=== PATIENT | female | born 1985 | race African-American/Black ===

== ENCOUNTER 2017-02-02 11:35 | Emergency (ER) | payer OTHER ==
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
[2017-02-02 12:55] VITALS: BP 112/67
== END 2017-02-02 12:55 | disposition home or self-care (01) ==
LOC: ER 11:35
DX: S00.83XA Contusion of other part of head, initial encounter (principal); S06.0X0A Concussion without loss of consciousness, initial encounter; R51 Headache; H92.09 Otalgia, unspecified ear; W22.8XXA Striking against or struck by other objects, initial encounter; F17.210 Nicotine dependence, cigarettes, uncomplicated
CPT/HCPCS: 99283

== ENCOUNTER 2018-01-09 10:43 | Emergency (ER) | payer BC, OTHER ==
[2018-01-09] MEDS ORDERED: RINGERS SOLUTION,LACTATED 1,000 ML IV ONE (10:58)
[2018-01-09] MEDS ORDERED: ONDANSETRON HCL INJ/PF 4 MG/2 ML SDV IV ONE (10:59)
[2018-01-09] MEDS ORDERED: IPRATROPIUM/ALBUTEROL 0.5-2.5 MG/3 ML AMPUL NEB ONE (11:00)
--- NOTE | 2018-01-09 11:01 | ER Document Report ---
ED Medical Screen (RME) - General Chief Complaint: Ear Pain Stated Complaint: COLD SYMPTOMS Time Seen by Provider: 01/09/18 10:58 Mode of Arrival: Ambulatory Information source: Patient Notes: 32-year-old female with a remote history of asthma and bipolar affective disorder presents to the emergency room with cough, shortness of breath, nausea , vomiting, not tolerating fluids. Patient states she has generalized weakness and fell because of the weakness and now has left hip pain. Patient does appear uncomfortable in triage. TRAVEL OUTSIDE OF THE [place] IN LAST 30 DAYS: No - Related Data Allergies/Adverse Reactions: No Known Allergies Allergy (Verified 02/10/16 11:05) Past Medical History Renal/ Medical History: Denies: Hx Peritoneal Dialysis Psychiatric Medical History: Reports: Hx Depression - anxiety - Immunizations Hx Diphtheria, Pertussis, Tetanus Vaccination: Yes Physical Exam - Vital signs Vitals: Temp Pulse Resp BP Pulse Ox 98.4 F 82 16 116/69 98 01/09/18 10:58 01/09/18 10:58 01/09/18 10:58 01/09/18 10:58 01/09/18 10:58 Course - Vital Signs Vital signs: Temp Pulse Resp BP Pulse Ox 98.4 F 82 16 116/69 98 01/09/18 10:58 01/09/18 10:58 01/09/18 10:58 01/09/18 10:58 01/09/18 10:58
[2018-01-09] MEDS ORDERED: HYDROCODONE/ACETAMINOPHEN 5-325 MG TABLET PO ONE (11:40)
[2018-01-09] MEDS ORDERED: IBUPROFEN 800 MG TABLET PO ONE (11:40)
[2018-01-09] MEDS ORDERED: AMOXICILLIN TR/POT CLAVULANATE 500-125 MG TAB PO ONE (11:40)
[2018-01-09] MEDS ORDERED: AMOXICILLIN TRIHYD 250 MG CAPSULE PO ONE (11:40)
--- NOTE | 2018-01-09 11:43 | ER Document Report ---
HPI - HPI Patient complains to provider of: Lump to right side of neck Onset: Other - 10 days Onset/Duration: Persistent Quality of pain: Achy Pain Level: 3 Context: Patient complains of tender lump to right side of neck that she is noticed for the past 10 days. Patient denies any sore throat fever or any old symptoms. Patient denies any exposures to any cat scratches or cat bites. Patient denies any difficulty breathing or swallowing. Associated Symptoms: Earache, Other - Lump to right side of neck. denies: Nonproductive cough, Productive cough, Fever Exacerbated by: Denies Relieved by: Denies Similar symptoms previously: No Recently seen / treated by doctor: No - ROS ROS below otherwise negative: Yes Systems Reviewed and Negative: Yes All other systems reviewed and negative - CONSTITUTIONAL Constitutional: DENIES: Fever, Chills - EENT EENT: REPORTS: Ear Pain - R side throat - NEURO Neurology: DENIES: Headache, Weakness - RESPIRATORY Respiratory: DENIES: Coughing - GASTROINTESTINAL Gastrointestinal: DENIES: Nausea, Patient vomiting - REPRODUCTIVE Reproductive: DENIES: : - MUSCULOSKELETAL Musculoskeletal: REPORTS: Neck Pain - DERM Skin Color: Normal Skin Problems: None Past Medical History - General Information source: Patient - Social History Smoking Status: Current Every Day Smoker Chew tobacco use (# tins/day): No Smoking Education Provided: Yes Frequency of alcohol use: Occasional Drug Abuse: None Occupation: [employer] Lives with: Family Family History: Reviewed & Not Pertinent, Hypertension, Other - Negative family history of migraines Patient has suicidal ideation: No Patient has homicidal ideation: No - Medical History Medical History: Negative Renal/ Medical History: Denies: Hx Peritoneal Dialysis Past Surgical History: Reports: Hx Orthopedic Surgery - Immunizations Hx Diphtheria, Pertussis, Tetanus Vaccination: Yes Vertical Provider Document - CONSTITUTIONAL Agree With Documented VS: Yes Exam Limitations: No Limitations General Appearance: WD/WN, No Apparent Distress - INFECTION CONTROL TRAVEL OUTSIDE OF THE [place] IN LAST 30 DAYS: No - HEENT HEENT: Atraumatic, Normocephalic. negative: Pharyngeal Exudate, Pharyngeal Tenderness, Pharyngeal Erythema, Tympanic Membrane Red, Tympanic Membrane Bulging Mouth Diagram: 1 - Dental caries, dental fracture, no gingival abscess, no sublingual or submental swelling, no trismus - NECK Neck: Lymphadenopathy-Right - Prominent right submandibular lymph node, normal skin color overlying area - RESPIRATORY Respiratory: Breath Sounds Normal, No Respiratory Distress, Chest Non-Tender - CARDIOVASCULAR Cardiovascular: Regular Rate, Regular Rhythm, No Murmur - BACK Back: Normal Inspection - MUSCULOSKELETAL/EXTREMETIES Musculoskeletal/Extremeties: BRAD SHABAZZ - NEURO Level of Consciousness: Awake, Alert, Appropriate Motor/Sensory: No Motor Deficit - DERM Integumentary: Warm, Dry, No Rash Course - Re-evaluation Re-evalutation: 01/09/18 Suspect patient with reactive lymph node due to infected dental caries on the right lower side. Patient does report intermittent jaw pain that corresponds to location of tooth. Patient states pain will occasionally radiate to her ear and right side of face. Patient without any neurologic deficits, no potential airway compromise. Good return precautions given. Patient agreeable with discharge plan of care at this time. - Vital Signs Vital signs: Temp Pulse Resp BP Pulse Ox 98.4 F 82 16 116/69 98 01/09/18 10:58 01/09/18 10:58 01/09/18 10:58 01/09/18 10:58 01/09/18 10:58 Discharge - Discharge Clinical Impression: Dental caries, Cervical lymphadenopathy Condition: Stable Disposition: HOME, SELF-CARE Instructions: Anti-Inflammatory Medication ([facility]), Augmentin ([facility]), Lymphadenopathy ([facility]) Additional Instructions: Return immediately for any new or worsening symptoms Followup with your primary care provider, call tomorrow to make a followup appointment Follow-up with a dental care provider Prescriptions: Amox Tr/Potassium Clavulanate [Augmentin 875-125 Tablet] 1 tab PO BID 10 Days tablet Naproxen [Naprosyn 250 Nmg Tablet] 1 tab PO BID #14 tablet Forms: Smoking Cessation Education Referrals: EMEKA OLSON MD [Primary Care Provider] - Follow up as needed [facility] [Provider Group] - Follow up as needed
[2018-01-09 12:15] VITALS: BP 117/74
== END 2018-01-09 12:15 | disposition home or self-care (01) ==
LOC: ER 10:43
DX: K02.9 Dental caries, unspecified (principal); R22.1 Localized swelling, mass and lump, neck; H92.01 Otalgia, right ear; F17.200 Nicotine dependence, unspecified, uncomplicated
CPT/HCPCS: 99283; J3490

== ENCOUNTER 2018-05-23 02:22 | Emergency (ER) | payer BC ==
[2018-05-23 02:44] VITALS: BP 110/66
--- NOTE | 2018-05-23 03:27 | RADIOLOGY REPORT (SQ) ---
EXAM DESCRIPTION: XR FINGERS COMPLETED DATE/TME: 05/23/2018 00:00 CLINICAL HISTORY: 33 years, Female, fell landed on right thumb. COMPARISON: None. NUMBER OF VIEWS: 3 TECHNIQUE: 3 views right thumb LIMITATIONS: None. FINDINGS: Negative for acute fracture or dislocation. Soft tissues are unremarkable IMPRESSION: Negative exam copyright 2011 [employer]- All Rights Reserved
[2018-05-23] MEDS ORDERED: ACETAMINOPHEN 325 MG TABLET PO ONE (04:08)
[2018-05-23] MEDS ORDERED: IBUPROFEN 600 MG TABLET PO ONE (04:08)
--- NOTE | 2018-05-23 04:08 | ER Document Report ---
ED General - General Chief Complaint: Hand Injury Stated Complaint: THUMB INJURY Time Seen by Provider: 05/23/18 03:20 Primary Care Provider: EMEKA OLSON MD [Primary Care Provider] - Follow up as needed Notes: Patient is a 33-year-old female without chronic medical problems who presents with pain to her right thumb and right thenar eminence. Patient states that she fell landing onto the thenar eminence and thumb while going upstairs. Since that time has had a dull, throbbing, constant pain to the area worsened by movement of the thumb. Has not tried nothing for improvement of the pain. No history of similar injuries in the past. She is right-hand dominant. Denies any additional injuries or concerns today. TRAVEL OUTSIDE OF THE [place] IN LAST 30 DAYS: No - Related Data Allergies/Adverse Reactions: No Known Allergies Allergy (Verified 02/10/16 11:05) Past Medical History - General Information source: Patient - Social History Smoking Status: Never Smoker Frequency of alcohol use: None Drug Abuse: None Lives with: Friend Family History: Reviewed & Not Pertinent, Hypertension, Other - Negative family history of migraines Patient has suicidal ideation: No Patient has homicidal ideation: No Renal/ Medical History: Denies: Hx Peritoneal Dialysis Psychiatric Medical History: Reports: Hx Depression - anxiety Past Surgical History: Reports: Hx Orthopedic Surgery - Immunizations Hx Diphtheria, Pertussis, Tetanus Vaccination: Yes Review of Systems - Review of Systems Notes: Constitutional: Negative for fever. Eyes: Negative for visual changes. ENT: Negative for facial injury Cardiovascular: Negative for chest injury. Respiratory: Negative for shortness of breath. Gastrointestinal: Negative for abdominal injury. Genitourinary: Negative for genital injury Musculoskeletal: Positive right hand and thumb injury Skin: Negative for laceration/abrasions. Neurological: Negative for head injury. Physical Exam - Vital signs Vitals: Temp Pulse Resp BP Pulse Ox 98.9 F 98 16 110/66 100 05/23/18 02:43 05/23/18 02:43 05/23/18 02:43 05/23/18 02:43 05/23/18 02:43 Interpretation: Normal Notes: PHYSICAL EXAMINATION: GENERAL: Well-appearing, well-nourished and in no acute distress. HEAD: Atraumatic, normocephalic. EYES: sclera anicteric, conjunctiva are normal. ENT: Moist mucous membranes. NECK: Normal range of motion LUNGS: Normal work of breathing HEART: 2+ radial pulses bilaterally EXTREMITIES: There is mild ecchymosis over the thenar eminence on the right hand. No pain on palpation of the anatomic snuffbox. Patient is able to fully flex the thumb at the PIP as well as at the MCP. There is pain with these range of movements. Full extension present. NEUROLOGICAL: No focal neurological deficits. Moves all extremities s pontaneously and on command. PSYCH: Normal mood, normal affect. SKIN: Warm, Dry, normal turgor, no rashes or lesions noted. Course - Re-evaluation Re-evalutation: 05/23/18 04:06 No evidence of a septic joint, gout flare, dislocation, or fracture on exam and imaging. Full flexion extension at the thumb. Notable ecchymosis to the thenar eminence which is likely the source of the patient's pain. Vitals wnl. At this time, I do not see an indication for labs or further imaging. Will discharge with conservative measures, return precautions, and follow-up recommendations. - Vital Signs Vital signs: Temp Pulse Resp BP Pulse Ox 98.9 F 98 16 110/66 100 05/23/18 02:43 05/23/18 02:43 05/23/18 02:43 05/23/18 02:43 05/23/18 02:43 - Diagnostic Test Radiology reviewed: Image reviewed, Reports reviewed Radiology results interpreted by me: 05/23/18 04:07 Right thumb x-ray: No acute fracture or dislocation Discharge - Discharge Clinical Impression: Injury of right thumb Qualifiers: Encounter type: initial encounter Qualified Code(s): S69.91XA - Unspecified injury of right wrist, hand and finger(s), initial encounter Injury of right hand Qualifiers: Encounter type: initial encounter Qualified Code(s): S69.91XA - Unspecified injury of right wrist, hand and finger(s), initial encounter Condition: Good Disposition: HOME, SELF-CARE Additional Instructions: Your x-ray does not show any acute fracture today. You likely have a soft tissue injury. You should continue to take anti-inflammatories such as ibuprofen 600 mg every 6 hours. Continue to apply ice to the area is much your able. Please follow-up with your primary care physician if you do not have improving your symptoms in the next 1-2 weeks. Please return immediately if you develop weakness, numbness, spreading redness from the area, or any other symptoms that are concerning to you. Referrals: EMEKA OLSON MD [Primary Care Provider] - Follow up as needed DINORAH OQUENDO DO [ACTIVE STAFF] - Follow up as needed
== END 2018-05-23 04:15 | disposition home or self-care (01) ==
LOC: ER 02:22
DX: S60.221A Contusion of right hand, initial encounter (principal); M79.644 Pain in right finger(s); M79.642 Pain in left hand; W10.9XXA Fall (on) (from) unspecified stairs and steps, initial encounter
CPT/HCPCS: 99283

== ENCOUNTER 2018-07-08 22:27 | Emergency (ER) | payer BC | END 2018-07-08 22:45 | disposition left against medical advice (07) | LOC: ER 22:27 | DX: Z53.21 Procedure and treatment not carried out due to patient leaving prior to being seen by health care provider (principal) | CPT/HCPCS: 99282 ==

== ENCOUNTER 2019-01-05 00:40 | Emergency (ER) | payer BC ==
[2019-01-05] MEDS ORDERED: KETOROLAC TROMETHAMINE INJ/PF 30 MG/1 ML SDV IV ONE (03:19)
--- NOTE | 2019-01-05 04:26 | RADIOLOGY REPORT (SQ) ---
EXAM DESCRIPTION: XR CHEST 2 VIEWS COMPLETED DATE/TME: 01/05/2019 03:19 CLINICAL HISTORY: 33 years, Female, SOB COMPARISON: None. NUMBER OF VIEWS: Two TECHNIQUE: Two views of the chest LIMITATIONS: None. FINDINGS: The lungs are clear. The heart is normal in size. No pneumothorax or pleural effusion. The bones are unremarkable. IMPRESSION: No acute cardiopulmonary abnormality. copyright 2010 [employer]- All Rights Reserved
--- NOTE | 2019-01-05 05:20 | ER Document Report ---
ED General - General Chief Complaint: Chest Pain Stated Complaint: CHEST PAINS/SHORTNESS OF BREATH Time Seen by Provider: 01/05/19 03:19 Primary Care Provider: EMEKA OLSON MD [Primary Care Provider] - Follow up as needed Notes: Patient is a 33-year-old female presents to the emergency department for right- sided chest pain. States it is achy and constant nature. States she rolled over in bed and noticed she had it around approximately 2200 hrs. Patient voices the pain increases when she takes a deep breath, palpates it, rotates her right shoulder. Patient's denying any injuries that she knows of. Patient's denying breaking out in a sweat. Patient voices sometimes when she takes a deep breath and the pain "hits me I feel short of breath." Patient's denying any long car rides, train rides, plane rides. She is denying using oral contraceptives. Patient voices she does smoke cigarettes. TRAVEL OUTSIDE OF THE [place] IN LAST 30 DAYS: No - Related Data Allergies/Adverse Reactions: No Known Allergies Allergy (Verified 01/05/19 01:39) Past Medical History - General Information source: Patient - Social History Smoking Status: Current Every Day Smoker Chew tobacco use (# tins/day): No Frequency of alcohol use: Social Drug Abuse: None Family History: Reviewed & Not Pertinent, Hypertension, Other - Negative family history of migraines Patient has suicidal ideation: No Patient has homicidal ideation: No Renal/ Medical History: Denies: Hx Peritoneal Dialysis Psychiatric Medical History: Reports: Hx Depression - anxiety Past Surgical History: Reports: Hx Orthopedic Surgery - Immunizations Hx Diphtheria, Pertussis, Tetanus Vaccination: Yes Review of Systems - Review of Systems Constitutional: denies: Fever EENT: No symptoms reported Cardiovascular: See HPI Respiratory: See HPI Gastrointestinal: No symptoms reported Genitourinary: No symptoms reported Female Genitourinary: No symptoms reported Musculoskeletal: No symptoms reported Skin: No symptoms reported Hematologic/Lymphatic: No symptoms reported Neurological/Psychological: No symptoms reported Physical Exam - Vital signs Vitals: Temp Pulse Resp BP Pulse Ox 98.1 F 85 17 135/88 H 99 01/05/19 01:40 01/05/19 01:40 01/05/19 01:40 01/05/19 01:40 01/05/19 01:40 - Notes Notes: GENERAL: Alert, interacts well. No acute distress. HEAD: Normocephalic, atraumatic. EYES: Pupils equal, round, and reactive to light. Extraocular movements intact. ENT: Oral mucosa moist, tongue midline. NECK: Full range of motion. Supple. Trachea midline. LUNGS: Clear to auscultation bilaterally, no wheezes, rales, or rhonchi. No respiratory distress. HEART: Regular rate and rhythm. No murmur Chest: No crepitus felt, no erythema, ecchymosis noted anterior, posterior chest wall. Generalized pain noted right intercostal anterior muscles. ABDOMEN: Soft, non-tender. Non-distended. Bowel sounds present in all 4 quadrants. EXTREMITIES: Moves all 4 extremities spontaneously. No edema, normal radial and dorsalis pedis pulses bilaterally. No cyanosis. BACK: no cervical, thoracic, lumbar midline tenderness. No saddle anesthesia, normal distal neurovascular exam. NEUROLOGICAL: Alert and oriented x3. Normal speech. cranial nerves II through XII grossly intact PSYCH: Normal affect, normal mood. SKIN: Warm, dry, normal turgor. No rashes or lesions noted. Course - Re-evaluation Re-evalutation: Chest X-Ray 01/05/19 03:19 IMPRESSION: No acute cardiopulmonary abnormality. copyright 2010 [employer]- All Rights Reserved EKG was ordered by triage nurse. Does show a sinus rhythm rate of 79, QTc, 432, no ST segment elevations or depressions noted. Patient's chest x-ray shows no signs of pneumonia, pneumothorax, rib fracture. Based on patient's physical exam I do feel as though this is muscular in nature. Patient was treated with Toradol and states she feels "so much better." Patient voices her last menstrual cycle was 2 weeks ago and there is no chance she is . Discussed continued use of Motrin [id number] and following up with primary care provider. Patient stable for discharge. - Vital Signs Vital signs: Temp Pulse Resp BP Pulse Ox 98.1 F 85 17 135/88 H 99 01/05/19 01:40 01/05/19 01:40 01/05/19 01:40 01/05/19 01:40 01/05/19 01:40 Discharge - Discharge Clinical Impression: Chest wall pain Condition: Stable Disposition: HOME, SELF-CARE Instructions: Chest Wall Pain ([facility]) Additional Instructions: As we discussed you have been seen and treated in the emergency department for your chest wall pain. I do feel that this is muscular in nature. Please take [id number] Tylenol or Motrin for generalized pain. Please follow-up with your primary care provider in the next 12 to 24 hours. Return to the emergency room for any concerns. Forms: Return to Work Referrals: EMEKA OLSON MD [Primary Care Provider] - Follow up as needed
[2019-01-05 05:30] VITALS: BP 98/59
--- NOTE | 2019-01-05 09:25 | EKG REPORT ---
SEVERITY:- NORMAL ECG - SINUS RHYTHM : Confirmed by: Shelli Shahid MD 05-Jan-2019 09:24:28
== END 2019-01-05 05:30 | disposition home or self-care (01) ==
LOC: ER 00:40
DX: R07.89 Other chest pain (principal); M25.511 Pain in right shoulder; F17.200 Nicotine dependence, unspecified, uncomplicated
CPT/HCPCS: 93005; 71046; 93010; J1885; 96374; 99285